=== PATIENT | female | born 1960 | race Caucasian/White ===

== ENCOUNTER 2018-01-08 20:47 | Emergency (ER) | payer MEDICAID ==
[~2018-01-08] VITALS: Ht 157.5 cm; Wt 83.9 kg
[2018-01-08 20:52] VITALS: Ht 157.5 cm; Wt 83.9 kg
[2018-01-08 21:30] LABS: BASOPHIL % 1.6 % (0-2); PLATELET COUNT 206 x10^3mcL (130-400)
[2018-01-08 21:35] LABS: CALCIUM 9.1 mg/dL (8.5-10.1); CARBON DIOXIDE 21.7 mmol/L (21-32); CHLORIDE SERUM 107 mmol/L (98-107); GFR1 > 60 mL/min; GLUCOSE SERUM 111 mg/dL (74-106); POTASSIUM SERUM 3.7 mmol/L (3.5-5.1); SODIUM SERUM 142 mmol/L (136-145)
[2018-01-08 21:40] LABS: ALBUMIN 4.3 g/dL (3.4-5.0); ALKALINE PHOSPHATASE 110 U/L (46-116); ALT/SGPT 26 U/L (14-59); AST/SGOT 21 U/L (15-37); BILIRUBIN TOTAL 0.33 mg/dL (0.20-1.00)
[2018-01-08 21:45] LABS: TOTAL PROTEIN, SERUM 8.6 g/dL (6.4-8.2)
[2018-01-08 22:12] VITALS: BP 112/79
== END 2018-01-08 22:19 | disposition home or self-care (01) ==
LOC: ED 20:47
PROVIDERS: Emergency Medicine
DX: F41.9 Anxiety disorder, unspecified (principal)
CPT/HCPCS: 36415

== ENCOUNTER 2019-05-20 08:44 | Emergency (ER) | payer SELFPAY ==
[~2019-05-20] VITALS: Ht 157.5 cm; Wt 84.4 kg
[2019-05-20 08:49] VITALS: Ht 157.5 cm; Wt 84.4 kg
[2019-05-20 10:02] VITALS: BP 110/69
== END 2019-05-20 10:02 | disposition home or self-care (01) ==
LOC: ED 08:44
DX: B34.9 Viral infection, unspecified (principal)
CPT/HCPCS: 87804